=== PATIENT | female | born 1970 | race Caucasian/White ===

== ENCOUNTER 2017-07-30 23:25 | Emergency (ER) | payer OTHER, SELFPAY ==
[2017-07-30 23:50] LABS: Bilirubin Negative (Negative); Blood, Urine Negative (Negative); Glucose, Urine (Dipstick) Negative (Negative); Ketone, Urine Negative (Negative); Nitrite Negative (Negative); Protein, Urine (Dipstick) Negative (Neg-Trace); Urobilinogen 0.2 mg/dL (0.2-1.0)
[2017-07-31 00:01] LABS: #Basophils 0.1 thou/uL (0.0-0.2); #Eosinphils 0.2 thou/uL (0.0-0.7); #Lymphocytes 2.4 thou/uL (1.20-3.40); #Monocytes 0.7 thou/uL (0.11-0.59); #Neutrophils 8.9 thou/uL (1.40-6.50); %Basophils 0.6 % (0.0-1.0); %Eosinophils 1.4 % (0.0-10.0); %Lymphocytes 19.8 % (21.0-51.0); %Monocytes 5.7 % (0.0-10.0); Hematocrit 43.6 % (36.0-47.0); Mean Platelet Volume 7.5 fL (7.4-10.4); White Blood Cell (WBC) Count 12.3 thou/uL (4.8-10.8)
[2017-07-31 00:15] LABS: Amphetamine Not Detected (NotDetected); Methadone Not Detected (NotDetected); Methamphetamine Not Detected (NotDetected)
[2017-07-31 00:25] LABS: ALT (SGPT) 17 U/L (8-55); AST (SGOT) 16 U/L (5-34); Alkaline Phosphatase 49 U/L (40-150); Anion Gap 10 mmol/L (10-20); BUN (Urea Nitrogen) 15 mg/dL (7.0-18.7); Bilirubin, Total 0.2 mg/dL (0.2-1.2); Calc. Creatinine Clearance 0 mL/min (70-130); Calcium 9.6 mg/dL (7.8-10.44); Carbon Dioxide 32 mmol/L (22-29); Chloride 104 mmol/L (98-107); Estimated GFR-MDRD 79; Globulin 2.8 g/dL (2.4-3.5); Protein, Total 6.7 g/dL (6.0-8.3)
[2017-07-31] MEDS ORDERED: Ketorolac Tromethamine 30 MG/ML VIAL ONE (02:31)
[2017-07-31] MEDS ORDERED: diphenhydrAMINE HCl 50 MG/ML 1 ML VIAL ONE (04:37)
[2017-07-31] MEDS ORDERED: Metoclopramide HCl 10 MG/2 ML VIAL ONE (04:37)
--- NOTE | 2017-07-31 09:30 | RAD ---
SINGLE VIEW OF CHEST: Date: 07/31/17 COMPARISON: 02/05/17. HISTORY: Dizziness and cough. FINDINGS: Single view of the chest shows a normal sized cardiomediastinal silhouette. There is no evidence of consolidation, mass, or pleural effusion. The bones are unremarkable. IMPRESSION: No evidence of acute cardiopulmonary disease. POS: [facility]
--- NOTE | 2017-07-31 13:33 | CT ---
PRELIMINARY REPORT/[facility]/EMERGENCY AFTER HOURS PROCEDURE: EXAM: CT Head Without Intravenous Contrast EXAM DATE/TIME: Exam ordered 07/31/2017 4:18 AM CLINICAL HISTORY: 47 years old, female; Pain; Headache; Headache not specified; Patient HX: [facility] TECHNIQUE: Axial computed tomography images of the head/brain without intravenous contrast. COMPARISON: No relevant prior studies available. FINDINGS: Brain: Normal. No hemorrhage. No significant white matter disease. No edema. Ventricles: Normal. No ventriculomegaly. Bones/joints: Normal. No acute fracture. Soft tissues: Normal. Sinuses: Unremarkable as visualized. No acute sinusitis. Mastoid air cells: Unremarkable as visualized. No mastoid effusion. IMPRESSION: No acute intracranial hemorrhage. Thank you for allowing us to participate in the care of your patient. Dictated and Authenticated by: Richard Dodd MD 07/31/2017 4:38 AM Central Time ([place] \T\ [place]) FINAL REPORT EMERGENCY AFTER HOURS CT BRAIN WITHOUT CONTRAST: Date: 07/31/17 FINDINGS/IMPRESSION: I agree with the findings and impression given in the preliminary report per [facility] physician. No evid ence of acute intracranial abnormality. POS: [facility]
== END 2017-07-31 05:53 | disposition home or self-care (01) ==
LOC: ERS 23:25
DX: E86.0 Dehydration (principal); F32.9 Major depressive disorder, single episode, unspecified; F17.210 Nicotine dependence, cigarettes, uncomplicated; J44.9 Chronic obstructive pulmonary disease, unspecified; Z79.52 Long term (current) use of systemic steroids
CPT/HCPCS: 36415; 70450; 71010; 80053; 80306; 81003; 83690; 85025; 94640; 96361; 96374; 96375; J1200; J1885; J2765; J7620